=== PATIENT | male | born 1945 | race Caucasian/White ===

== ENCOUNTER 2016-05-06 11:35 | Day surgery (SDC) | payer OTHER ==
[~2016-05-06] VITALS: Ht 162.6 cm; Wt 90.0 kg
[~2016-05-06 11:35] MED LIST: 0.9% Sodium Chloride 1,000 ML IV PRN; DOXY50TA2 PO; FUR20 PO; IPRA4AER IH; LIDO120C7 TP; POTA20TA16 PO; RANI150C4 PO; SPIR25TA3 PO; Sodium Chloride LOK Flush 10 mL Syringe IV PRN; fentaNYL-PF 50 mCg/mL 2 mL Inj IVPUSH PRN
[2016-05-06 13:35] VITALS: BP 131/79; PULSE 74; RESP 16; O2SAT 97
--- NOTE | 2016-05-06 14:46 | PCM.ENDCOL ---
Colonoscopy Date of Service: May 06, 2016 Physician Cj Goldberg MD Pre Procedure Diagnosis: Screening Post Procedure Dx & Findings: Polyps hemorrhoids diverticula Procedure Colonoscopy PROCEDURE IN DETAIL: Prep adequate Withdrawal time 20 minutes After unremarkable rectal examination the Olympus video colonoscope was inserted patient's anal canal and was advanced to cecum. Landmarks were identified including the ileocecal valve and appendiceal orifice. Scope was withdrawn systematically. Visualized colonic mucosa showed healthy shiny mucosa with normal healthy-appearing vasculature. In the cecum there was a 2 mm polyp which was removed completely using cold snare. In the ascending colon there was a 3 mm polyp which was removed completely using cold snare. In the transverse colon there were two 3 mm polyps which were removed completely using cold snare. In the descending colon there were two 3 mm polyps which were removed completely using cold snare. In the sigmoid colon, there was a 1 cm polyp which was removed completely using hot snare. In the rectum, there were 9 polyps. These were 7 mm to 1 cm in size. The smaller ones were resected completely using cold snare and anything close to a centimeter were resected completely using hot snare. From the descending colon to the sigmoid colon, there were several diverticuli medium- sized. Patient also has isolated diverticuli up to the ascending colon. In the rectum retroflexion was done which showed hemorrhoids. Anal canal was inspected carefully on the way out and hemorrhoids noted. Impression Polyps 16 status post complete removal Diverticuli Hemorrhoids Recommendation Repeat colonoscopy 1 year Diverticular diet Presedation Assessment Risks and Benefits Informed consent was obtained from the patient after all risks and benefits including but not limited to drug reaction, infection, pain, bleeding, perforation, as well as alternatives were discussed. Patient monitoring Continuous pulse oximetry, cardiac monitoring, blood pressure monitoring, IV access, and oxygen at 2L per nasal cannula. Periprocedural Fentanyl: Fentanyl 75mcg Incrementally Midazolam: Midazolam 3mg Incrementally Complications There were no periprocedural complications identified. Post Procedure Plan Post Procedure Recommendations 1. Restrict activities today. 2. Resume normal activities in the morning. 3. Resume medications. 4. Patient informed of normal post procedure side effects as bloating, drowsiness, blood streaking in the stool. 5. average risk CRCS. If colon polyps come back as: -Hyperplastic- can repeat colonoscopy in 10 years -Tubular adenoma- repeat colonoscopy in 5 years -Tubulovillous/villous adenoma- repeat colonoscopy in 3 years -If any dysplasia- return to clinic as soon as possible 6. Please don't hesitate to call me with any questions. Cj Goldberg MD May 06, 2016 14:46
[2016-05-06 14:49] VITALS: BP 125/70; PULSE 76; RESP 16; O2SAT 96
[2016-05-06 15:01] VITALS: BP 112/69; PULSE 91; RESP 16; O2SAT 93
--- NOTE | 2016-05-09 08:54 | PATH ---
SURGICAL PATHOLOGY Attending Physician:Cj Goldberg M.D. CASE STATUS: Signed Out PATIENT NAME: GONZALO MCCAULEY PID: [id number] : 1945 DATE COLLECTED:05/06/2016 00:00 SPECIMEN: 1: Colon, Biopsy 2: Colon, Biopsy 3: Colon, Biopsy 4: Colon, Biopsy 5: Colon, Biopsy 6: Rectum, Biopsy CLINICAL HISTORY: 1). CECAL POLYP 2). ASCENDING COLON POLYP 3). TRANSVERSE COLON POLYP 4). DESCENDING COLON POLYPS 5). SIGMOID COLON POLYP 6). RECTAL POLYPS FINAL DIAGNOSIS: 1. Cecal Polyp: Tubular adenoma. 2. Ascending Colon Polyp: Tubular adenoma. 3. Transverse Colon Polyp: Tubular adenoma. 4. Descending Colon Polyps: Tubular adenomas (2). 5. Sigmoid Colon Polyp: Hyperplastic polyp. 6. Rectal Polyps: Tubular adenoma. Hyperplastic polyps (9). ICD10 D12.6 GROSS DESCRIPTION: The specimen is received in six formalin filled containers labeled with the patient's name. 1). The specimen is sublabeled "cecal polyp" and consists of a 0.3 x 0.2 x 0.2 CM portion of tissue which is entirely submitted in cassette 1A. 2). The specimen is sublabeled "ascending colon polyp" and consists of a 0.3 x 0.3 x 0.2 CM portion of tissue which is entirely submitted in cassette 2A. 3). The specimen is sublabeled "transverse colon polyp" and consists of 3 portions of tissue which aggregate to 0.4 x 0.4 x 0.3 CM. The specimen is entirely submitted in cassette 3A. 4). The specimen is sublabeled "descending colon polyps" and consists of 2 portions of tissue which aggregate to 0.3 x 0.3 x 0.3 CM. The specimen is entirely submitted in cassette 4A. 5). The specimen is sublabeled "sigmoid colon polyp" and consists of a 0.2 x 0.2 x 0.2 CM portion of tissue which is entirely submitted in cassette 5A. 6). The specimen is sublabeled "rectal polyps" and consists of multiple portions of tissue which aggregate to 1.5 x 1.0 x 0.5 CM. The specimen is entirely submitted in cassette 6A. 05/07/2016 [facility] ICD-9 CODES: CPT CODES: 1: 58384 2: 58675 3: 40048 4: 37789 5: 99042 6: 99418 Electronically Signed Out Roger Traylor MD [facility] [address], [place] [address] Technical component performed at [facility], [address], [place], [address]
== END 2016-05-06 23:59 | disposition home or self-care (01) ==
LOC: END 11:35
PROVIDERS: ATTEND Internal Medicine
DX: Z12.11 Encounter for screening for malignant neoplasm of colon (principal); D12.0 Benign neoplasm of cecum; D12.2 Benign neoplasm of ascending colon; D12.3 Benign neoplasm of transverse colon; D12.4 Benign neoplasm of descending colon; K63.5 Polyp of colon; D12.8 Benign neoplasm of rectum; K57.30 Diverticulosis of large intestine without perforation or abscess without bleeding; K64.8 Other hemorrhoids; I50.9 Heart failure, unspecified
CPT/HCPCS: 45385; 99153; G0500; J7030